=== PATIENT | male | born 1980 | race Caucasian/White ===

== ENCOUNTER 2023-04-23 07:51 | Inpatient (IN) | payer OTHER ==
[2023-04-23] MEDS ORDERED: SODIUM CHLORIDE 0.9% 1,000 ML IV ONE (08:01)
[2023-04-23 08:08] LABS: Glucose,Whole Blood 86 mg/dL (70-110)
[2023-04-23 08:12] LABS: Basophils % (A) 0 %; Eosinophils # (A) 0.2 k/uL (0-0.7); Eosinophils % (A) 1 %; HCT 40.6 % (39.0-53.0); Lymphocytes # (A) 3.9 k/uL (1.0-4.8); Lymphocytes % (A) 31 %; MCH 34.9 pg (25.0-35.0); MCHC 34.5 g/dL (31.0-37.0); MCV 101.4 fL (80.0-100.0); Macrocytosis Slight; Mean Platelet Volume 6.9; Monocytes # (A) 0.4 k/uL (0-1.0); Monocytes % (A) 3 %; Neutrophils # (A) 7.8 k/uL (1.3-7.7); Neutrophils % (A) 62 %; Platelet Count 407 k/uL (150-450); RDW 13.5 % (11.5-15.5); WBC 12.5 k/uL (3.8-10.6)
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
[2023-04-23 08:28] LABS: INR 0.9 (<1.2); Partial Thromboplastin Time 22.2 sec (22.0-30.0); Prothrombin Time 10.4 sec (10.0-12.5)
[2023-04-23 08:29] LABS: ALT 56 U/L (4-49); AST 158 U/L (17-59); African American GFR (CKD) >90 (>60 ml/min/1.73 sqM); Albumin 3.8 g/dL (3.5-5.0); Alkaline Phosphatase 66 U/L (38-126); Anion Gap 13 mmol/L; Blood Urea Nitrogen 9 mg/dL (9-20); Calcium 8.2 mg/dL (8.4-10.2); Carbon Dioxide 20 mmol/L (22-30); Chloride 102 mmol/L (98-107); Glucose 102 mg/dL (74-99); Non-African American GFR(CKD) >90 (>60 ml/min/1.73 sqM); Potassium 3.9 mmol/L (3.5-5.1); Sodium 135 mmol/L (137-145); Total Bilirubin 0.3 mg/dL (0.2-1.3); Total Protein 6.5 g/dL (6.3-8.2)
[2023-04-23 08:32] LABS: Alcohol 226 mg/dL
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
[2023-04-23] MEDS ORDERED: DIPH,PERTUS(ACELL)TETVAC-LF 0.5 ML VIAL IM ONE (08:59)
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
[2023-04-23] MEDS ORDERED: NALOXONE 0.4 MG/ML 1 ML VIAL IV PRN (10:46)
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
[2023-04-23 11:52] LABS: Glucose,Whole Blood 85 mg/dL (70-110)
[2023-04-23] MEDS ORDERED: LACTATED RINGERS 1,000 ML IV ONE (11:59)
[2023-04-23] MEDS ORDERED: ACETAMINOPHEN TAB 325 MG TAB PO PRN (12:00)
[2023-04-23] MEDS ORDERED: HYDROmorphone 0.5 MG/0.5 ML SYRINGE IVP PRN (12:00)
[2023-04-23] MEDS ORDERED: ONDANSETRON 4 MG/2 ML VIAL IVP PRN (12:00)
[2023-04-23 13:03] LABS: Amphetamine Screen,Urine Not Detected (NotDetected); Barbiturate Screen,Urine Not Detected (NotDetected); Benzodiazepines Screen,Urine Not Detected (NotDetected); Cocaine Screen,Urine Not Detected (NotDetected); Methadone Screen, Urine Not Detected (NotDetected); Opiate Screen,Urine Not Detected (NotDetected); Oxycodone Screen, Urine Not Detected (NotDetected); Phencyclidine Screen,Urine Not Detected (NotDetected); Tricyclic Antidepressant,Urine Not Detected (NotDetected); Urn Cannabinoid Scrn Detected (NotDetected)
[2023-04-23] MEDS: HYDROcodone/APAP 5-325MG 1 EACH TAB PO PRN ×2 (14:48→20:36)
[2023-04-23] MEDS: HEPARIN SODIUM,PORCINE 5,000 UNIT/ML 1 ML VIAL SQ SCH (14:50)
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
[2023-04-23 16:10] LABS: HCT 40.7 % (39.0-53.0); HGB 13.6 gm/dL (13.0-17.5); MCH 33.9 pg (25.0-35.0); MCHC 33.5 g/dL (31.0-37.0); Macrocytosis Slight; Mean Platelet Volume 6.8; Platelet Count 342 k/uL (150-450); RBC 4.03 m/uL (4.30-5.90); RDW 13.5 % (11.5-15.5); WBC 16.8 k/uL (3.8-10.6)
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
[2023-04-24] MEDS: HEPARIN SODIUM,PORCINE 5,000 UNIT/ML 1 ML VIAL SQ SCH ×3 (00:07→16:28)
[2023-04-24] MEDS: HYDROcodone/APAP 5-325MG 1 EACH TAB PO PRN ×5 (02:13→20:01)
[2023-04-24 05:21] LABS: Basophils % (A) 0 %; Eosinophils # (A) 0.1 k/uL (0-0.7); Eosinophils % (A) 1 %; HCT 40.9 % (39.0-53.0); HGB 13.4 gm/dL (13.0-17.5); Lymphocytes # (A) 1.4 k/uL (1.0-4.8); Lymphocytes % (A) 14 %; MCH 33.3 pg (25.0-35.0); MCHC 32.9 g/dL (31.0-37.0); MCV 101.4 fL (80.0-100.0); Macrocytosis Slight; Mean Platelet Volume 7.2; Monocytes # (A) 0.7 k/uL (0-1.0); Monocytes % (A) 7 %; Neutrophils # (A) 7.4 k/uL (1.3-7.7); Neutrophils % (A) 76 %; Platelet Count 313 k/uL (150-450); RBC 4.03 m/uL (4.30-5.90); RDW 13.3 % (11.5-15.5); WBC 9.6 k/uL (3.8-10.6)
[2023-04-24 06:13] LABS: ALT 46 U/L (4-49); AST 130 U/L (17-59); African American GFR (CKD) >90 (>60 ml/min/1.73 sqM); Albumin 3.3 g/dL (3.5-5.0); Alkaline Phosphatase 71 U/L (38-126); Anion Gap 8 mmol/L; Blood Urea Nitrogen 9 mg/dL (9-20); Calcium 8.3 mg/dL (8.4-10.2); Carbon Dioxide 24 mmol/L (22-30); Chloride 100 mmol/L (98-107); Glucose 77 mg/dL (74-99); Non-African American GFR(CKD) >90 (>60 ml/min/1.73 sqM); Potassium 4.1 mmol/L (3.5-5.1); Sodium 132 mmol/L (137-145); Total Protein 5.9 g/dL (6.3-8.2)
[2023-04-24] MEDS: PANTOPRAZOLE 40 MG/10 ML VIAL IV SCH (09:28)
[2023-04-24] MEDS: HYDROmorphone 1 MG/ML 1 ML SYRINGE IVP PRN ×3 (09:28→22:21)
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
--- NOTE | 2023-04-24 11:35 | XR ---
EXAM: XR chest 1V portable CLINICAL INDICATION:Male, 43 years old with history of Trace right apical pneumothorax; [facility] COMPARISON: CT and chest x-ray 04/23/2023 TECHNIQUE: Chest single view. FINDINGS: Lines/tubes/devices: EKG leads overlie the chest. No indwelling lines are seen. Cardiomediastinum: Cardiac silhouette appears normal in size. Unremarkable mediastinal silhouette. Vasculature: No increased pulmonary vasculature. Lungs/pleura: No consolidation, sizeable effusion, or visible pneumothorax. Bones/soft tissues: Bony thorax appears grossly intact as seen. Regional soft tissues appear unremarkable. IMPRESSION: No acute cardiopulmonary findings, or significant interval change.
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
[2023-04-25] MEDS: HEPARIN SODIUM,PORCINE 5,000 UNIT/ML 1 ML VIAL SQ SCH ×2 (00:01→08:02)
[2023-04-25 01:30] VITALS: RESP 18
[2023-04-25] MEDS: HYDROmorphone 1 MG/ML 1 ML SYRINGE IVP PRN ×3 (02:00→09:53)
[2023-04-25] MEDS: diphenhydrAMINE 25 MG CAP PO PRN ×2 (02:01→08:02)
[2023-04-25] MEDS: HYDROcodone/APAP 5-325MG 1 EACH TAB PO PRN ×4 (03:53→12:05)
[2023-04-25 07:34] VITALS: BP 143/90; PULSE 67; TEMP 98.4
[2023-04-25] MEDS: PANTOPRAZOLE 40 MG/10 ML VIAL IV SCH (08:01)
--- NOTE | 2023-04-25 11:12 | XR ---
EXAMINATION TYPE: XR foot complete LT DATE OF EXAM: 04/25/2023 11:01 AM CLINICAL INDICATION:Male, 43 years old with history of Evaluate for fracture; COMPARISON: None TECHNIQUE: XR foot complete LT examined in the AP, oblique, and lateral projections. FINDINGS: No evidence of any acute osseous pathology. No evidence of soft tissue swelling. Joints are preserve d. IMPRESSION: No evidence of acute fracture.
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
== END 2023-04-25 13:15 | DRG 964 ==
LOC: EC 07:51 → 2SICU 10:52 → 4SSUR 04-24 15:32
PROVIDERS: ADMIT Surgery; ATTEND Surgery
PROC: 3E0234Z Introduction of Serum, Toxoid and Vaccine into Muscle, Percutaneous Approach (ICD-10-PCS; principal; 2023-04-23)
PROC: 0HQ0XZZ Repair Scalp Skin, External Approach (ICD-10-PCS; 2023-04-23)
DX: S36.115A Moderate laceration of liver, initial encounter (principal); S27.0XXA Traumatic pneumothorax, initial encounter; S02.40DA Maxillary fracture, left side, initial encounter for closed fracture; M50.223 Other cervical disc displacement at C6-C7 level; S01.01XA Laceration without foreign body of scalp, initial encounter; S02.2XXA Fracture of nasal bones, initial encounter for closed fracture; S80.211A Abrasion, right knee, initial encounter; J44.9 Chronic obstructive pulmonary disease, unspecified; J43.9 Emphysema, unspecified; F10.229 Alcohol dependence with intoxication, unspecified; Z28.310 Unvaccinated for COVID-19; E89.0 Postprocedural hypothyroidism; M48.02 Spinal stenosis, cervical region; Z23 Encounter for immunization; Y90.7 Blood alcohol level of 200-239 mg/100 ml; F17.210 Nicotine dependence, cigarettes, uncomplicated; F32.A Depression, unspecified; F41.9 Anxiety disorder, unspecified; K43.2 Incisional hernia without obstruction or gangrene; M25.512 Pain in left shoulder; M54.9 Dorsalgia, unspecified; R79.89 Other specified abnormal findings of blood chemistry; F12.90 Cannabis use, unspecified, uncomplicated; Z79.890 Hormone replacement therapy; Z79.899 Other long term (current) drug therapy; Z85.850 Personal history of malignant neoplasm of thyroid; V43.52XA Car driver injured in collision with other type car in traffic accident, initial encounter; Y92.410 Unspecified street and highway as the place of occurrence of the external cause
CPT/HCPCS: 12002; 36415; 70450; 71045; 71260; 72125; 72170; 74177; 80053; 80306; 80320; 84484; 85025; 85027; 85610; 85730; 86850; 86900; 86901; 90471; 90715; 96360; 96361; 99291